=== PATIENT | male | born 1945 | race Caucasian/White ===

== ENCOUNTER 2022-11-10 10:09 | Emergency (ER) | payer OTHER, MEDICARE ==
[2022-11-10 10:37] VITALS: RESP 18; BMI 17.9
[2022-11-10 11:43] LABS: HEMATOCRIT 36.4 % (35.4-49); HEMOGLOBIN 12.6 G/dL (11.7-16.9); INR 1.21 (0.83-1.09); MCH 30.7 pg (25.7-33.7); MCHC 34.5 g/dl (32.0-35.9); MEAN CELL VOLUME 89.1 fl (80-96); MEAN PLT VOLUME 8.3 fl (7.5-11.1); PLATELET COUNT 186.6 10^3/uL (134-434); RBC 4.09 10^6/uL (4.00-5.60); RDW 14.8 % (11.9-15.9)
[2022-11-10 11:51] LABS: ALBUMIN 3.5 g/dl (3.4-5.0); BILIRUBIN,TOTAL 0.8 mg/dl (0.2-1); CALCIUM 8.9 mg/dl (8.5-10); CREATININE 1.4 mg/dl (0.55-1.3); TOT PROT 6.1 g/dl (6.4-8.2)
[2022-11-10 11:53] LABS: PLATELET ESTIMATE ADEQUATE
[2022-11-10 13:45] VITALS: BP 120/66; PULSE 70; TEMP 98.7
[2022-11-10 16:54] LABS: EPITHELIAL CELLS FEW /hpf
== END 2022-11-10 18:54 | disposition left against medical advice (07) ==
LOC: FER 10:09
DX: M79.604 Pain in right leg (principal); M79.605 Pain in left leg
CPT/HCPCS: 0241U-QW; 36415; 71045-TC-FY; 80053; 81003; 81015; 85027; 85610; 86850; 86900; 86901; 93005; 99285-25